=== PATIENT | male | born 1975 ===

== ENCOUNTER 2018-02-06 20:15 | Emergency (ER) | payer OTHER ==
[2018-02-06 20:41] VITALS: BP 157/101
[2018-02-06 21:17] LABS: Bilirubin,Urine NEG (Negative); Blood,Urine NEG (Negative); Color,Urine Yellow (Yellow); Mucus,Urine FEW /HPF; Protein,Urine <15 mg/dL mg/dL (Negative)
== END 2018-02-07 03:00 | disposition left against medical advice (07) ==
LOC: ED 20:15
DX: M54.6 Pain in thoracic spine (principal); M79.1 Myalgia; Z53.21 Procedure and treatment not carried out due to patient leaving prior to being seen by health care provider
CPT/HCPCS: 81001